=== PATIENT | male | born 1980 | race African-American/Black ===

== ENCOUNTER 2020-04-13 14:23 | Emergency (ER) | payer OTHER ==
[~2020-04-13] VITALS: Ht 175.3 cm; Wt 70.3 kg
[~2020-04-13 14:23] MED LIST: AMOXICILLIN 50500 MG PO; BACTRIM DS TAB1 EACH PO; FLEXERIL PO; IBUPROFEN 800800 M1 PO; IBUPROFEN 800800 MG PO; KEFLEX250 MG PO; KETOCONAZOLE60 GM TP; NOHOMEMEDICATIONS; NORCO 5-325 TA1 EACH PO; PERCOCET 5-3251 EACH PO; PREDNISONE 10 M10 M1 PO; PREDNISONE50 MG PO; VIBRAMYCIN 100100 MG PO; VICODIN 5-5001 EACH PO
[2020-04-13] MEDS ORDERED: NORVASC 2.5 MG2.5 M1 PO (14:31)
[2020-04-13] MEDS ORDERED: APAP W/CODEINE1 TA2 PO (15:41)
[2020-04-13 15:49] VITALS: BP 157/98
== END 2020-04-13 15:50 | disposition home or self-care (01) ==
LOC: M.ERS 14:23
DX: M79.641 Pain in right hand (principal); I10 Essential (primary) hypertension; Z79.899 Other long term (current) drug therapy; Z88.6 Allergy status to analgesic agent

== ENCOUNTER 2020-04-19 07:42 | Emergency (ER) | payer OTHER ==
[~2020-04-19] VITALS: Ht 175.3 cm; Wt 70.3 kg
[~2020-04-19 07:42] MED LIST changes: +APAP W/CODEINE1 TA2 PO; +NORVASC 2.5 MG2.5 M1 PO
[2020-04-19 08:37] VITALS: BP 141/103
== END 2020-04-19 08:37 | disposition home or self-care (01) ==
LOC: M.ERS 07:42
DX: S63.91XA Sprain of unspecified part of right wrist and hand, initial encounter (principal); I10 Essential (primary) hypertension; Z88.6 Allergy status to analgesic agent; X58.XXXA Exposure to other specified factors, initial encounter; Y93.89 Activity, other specified; Y92.89 Other specified places as the place of occurrence of the external cause; Y99.8 Other external cause status

== ENCOUNTER 2020-08-09 10:53 | Emergency (ER) | payer OTHER ==
[~2020-08-09] VITALS: Ht 175.3 cm; Wt 70.3 kg
[2020-08-09 12:10] VITALS: BP 154/116
== END 2020-08-09 12:11 | disposition home or self-care (01) ==
LOC: M.ERS 10:53
DX: M19.041 Primary osteoarthritis, right hand (principal); I10 Essential (primary) hypertension; Z88.6 Allergy status to analgesic agent; X50.9XXA Other and unspecified overexertion or strenuous movements or postures, initial encounter; Y93.89 Activity, other specified; Y92.89 Other specified places as the place of occurrence of the external cause; Y99.8 Other external cause status

== ENCOUNTER → 2021-07-09 | Emergency (ER) | payer OTHER ==
[~2021-07-09] VITALS: Ht 175.3 cm; Wt 74.8 kg
[~2021-07-09] MED LIST changes: +PREDNISONE 20 M20 MG PO
[2021-07-09 15:25] VITALS: BP 145/70
== END ==
LOC: M.ERS 14:29
DX: L25.9 Unspecified contact dermatitis, unspecified cause (principal); I10 Essential (primary) hypertension; Z88.6 Allergy status to analgesic agent